=== PATIENT | female | born 1965 | race Caucasian/White ===

== ENCOUNTER 2017-01-15 19:46 | Inpatient (IN) | payer OTHER ==
[2017-01-15] MEDS ORDERED: DIAZEPAM 5 MG TAB PO PRN (20:13)
[2017-01-15] MEDS ORDERED: HYDROmorphONE/DILAUDID 2 MG TAB PO ONE (21:00)
[2017-01-15] MEDS: SENNOSIDES/DOCUSATE SODIUM TAB PO SCH (21:13)
[2017-01-15] MEDS ORDERED: RIZATRIPTAN BENZOATE 10 MG PO PRN (22:13)
[2017-01-15] MEDS ORDERED: ALPRAZolam 0.5 MG TAB PO PRN (22:13)
[2017-01-15] MEDS ORDERED: traMADol 50 MG TAB PO SCH (22:30)
[2017-01-15] MEDS ORDERED: HYDROmorphONE/DILAUDID 2 MG TAB PO SCH (23:00)
[2017-01-15] MEDS ORDERED: CALCIUM CARBONATE 500 MG CHEWABLE TAB PO PRN (23:00)
[2017-01-15] MEDS: ACETAMINOPHEN 500 MG TAB PO SCH (23:12)
[2017-01-15] MEDS: traMADol 50 MG TAB PO SCH (23:12)
[2017-01-16] MEDS: HYDROmorphONE/DILAUDID 2 MG TAB PO SCH ×6 (01:03→21:07)
[2017-01-16] MEDS: traMADol 50 MG TAB PO SCH ×3 (02:58→11:14)
[2017-01-16] MEDS: ACETAMINOPHEN 500 MG TAB PO SCH ×5 (02:59→20:05)
[2017-01-16] MEDS: SENNOSIDES/DOCUSATE SODIUM TAB PO SCH ×2 (08:33→21:07)
[2017-01-16] MEDS: FLUoxetine 20 MG CAP PO SCH (08:33)
[2017-01-16] MEDS: POLYETHYLENE GLYCOL 3350 17 GM PKT PO SCH (08:33)
[2017-01-16] MEDS: CHOLECALCIFEROL VIT D3 2,000 UNITS TAB/CAP PO SCH (08:34)
[2017-01-16] MEDS: CALCIUM CARB W/VIT D 500 MG TAB PO SCH (08:34)
[2017-01-16] MEDS: CETIRIZINE 10 MG TAB PO SCH (08:34)
[2017-01-16] MEDS: [UNRECOGNIZED DRUG - OTHER] PO SCH (08:37)
[2017-01-16] MEDS ORDERED: Herbals/Supplements -Info Only PO SCH (09:00)
[2017-01-16] MEDS ORDERED: ESTRADIOL PO SCH (09:00)
[2017-01-16] MEDS ORDERED: NORETHINDRONE PO SCH (09:00)
[2017-01-16] MEDS ORDERED: FLUTICASONE NASAL 120 SPRAYS/16 GM MDI EACHNARE SCH (09:00)
[2017-01-16] MEDS ORDERED: NON-FORMULARY NEW DRUG IH SCH (10:00)
[2017-01-16] MEDS: ESTRADIOL PO SCH (11:14)
[2017-01-16] MEDS: BUDESONIDE EACHNARE SCH (11:14)
[2017-01-16] MEDS: NORETHINDRONE PO SCH (11:14)
[2017-01-16] MEDS: CALCIUM CARBONATE 500 MG CHEWABLE TAB PO PRN (11:23)
[2017-01-16] MEDS ORDERED: BISACODYL 10 MG SUPP PR PRN (11:30)
[2017-01-16] MEDS ORDERED: traMADol 50 MG TAB PO PRN (11:42)
--- NOTE | 2017-01-16 12:45 | GHP ---
[f rep st] HISTORY AND PHYSICAL POST ADMISSION PHYSICIAN EVALUATION AND REHABILITATION TREATMENT PLAN DATE OF ADMISSION: 01/15/2017 DATE OF EVALUATION: 01/16/2017 TIME OF EVALUATION: 1030. REFERRING FACILITY: [facility]. IMPAIRMENT GROUP: [id number]. DATE OF ONSET: 01/08/2017. REFERRING PHYSICIAN: Dr. Tran. CONSULTING PHYSICIANS: [facility], Dr. Schroeder, for preoperative cardiovascular evaluation. REHABLITATION DIAGNOSIS: Debility, status post lumbar fusion revision. ETIOLOGIC DIAGNOSIS: Other, nontraumatic spinal cord dysfunction. DATE OF SURGERY: 01/08/2017. HISTORY OF PRESENT ILLNESS: Mrs. Zheng has a history of scoliosis. She had lumbar lumbosacral fusion at age 14 and has had failure of that fusion initially per her report, due to ongoing horseback riding, against medical advice when she was 15. She had a subsequent injury approximately 7 years ago in a water slide with her child, who was 2 years old at that time. She reports that she had a sacral fracture in that injury. She had intermittent acute episodes of weakness in her thighs and she had back pain since then. She postponed revision surgery until her son was old enough to be relatively independent to allow her the time to be able to undergo the surgery and rehabilitation. She went to [facility] to have surgery with Dr. Tran, because he had trained under the surgeon who did her initial surgery. She underwent surgery on 01/08/2017 with a T11-S1 revision and fusion. Her postoperative course was complicated by difficulties with pain control, with constipation likely related to pain control, with hypoxemia which was thought to be due to opiate medications, with postoperative anemia and with abdominal pain across her lower abdomen. Labs and studies during her hospitalization,: I do not have a comprehensive list. On 01/10/2015 her creatinine was normal at 0.5. CBC showed an elevated white blood cell count of 12.5. She had anemia with a hemoglobin of 8.8 and hematocrit of 26.9. Platelet count was normal. On differential she had an elevated neutrophil count at 9.5. PRECAUTIONS: She has orthopedic precautions with no bending, lifting or twisting at the lumbar spine. COMORBIDITIES: She has no active tier 1, tier 2, or tier 3 comorbidities. PAST MEDICAL HISTORY: 1. Scoliosis. 2. Mild chronic asthma. 3. Anxiety. 4. Migraine headaches. 5. Seasonal allergies. 6. Chest pain due to migraine medication. 7. Sacral fracture. PAST SURGICAL HISTORY: She has had a spinal fusion when she was 14. PRE-HOSPITAL MEDICATIONS: 1. Fluoxetine 40 mg p.o. daily. 2. Montelukast 10 mg p.o. at bedtime. 3. Nabumetone 750 mg p.o. at bedtime. 4. Oxycodone/acetaminophen 1 tablet q.4 hours p.r.n. 5. Rizatriptan 10 mg p.o. daily p.r.n. migraines. 6. Alprazolam 0.5 mg p.o. twice daily p.r.n. anxiety. 7. Budesonide nasal spray 1 spray nasally daily. 8. Calcium/vitamin-D 1 tab p.o. daily. 9. Cetirizine 10 mg p.o. daily. 10. Vitamin D3 2000 units p.o. daily. 11. Cyclobenzaprine 10 mg p.o. three times daily. 12. Doxepin 10 mg p.o. at bedtime. ADMISSION MEDICATIONS: 1. Acetaminophen 500 mg p.o. q.4 hours. 2. Alprazolam 0.5 mg daily 12 hours p.r.n. 3. Amabelz hormone replacement, 1 tab p.o. daily. 4. Calcium carbonate with vitamin D 500 mg p.o. daily. 5. Calcium carbonate 500 mg p.o. q.2 hours p.r.n. dyspepsia. 6. Cetirizine 10 mg p.o. daily. 7. Cholecalciferol 2000 units p.o. daily. 8. Diazepam 5 mg p.o. q.8 hours p.r.n. 9. Fluoxetine 40 mg p.o. daily. 10. Hydromorphone 2-6 mg scheduled q.4 hours. 11. Methocarbamol 1000 mg p.o. q.6 hours p.r.n. 12. Montelukast 10 mg p.o. at bedtime. 13. Nabumetone 750 mg p.o. at bedtime. 14. Budesonide nasal spray 1 spray each nares p.o. daily. 15. Rizatriptan 10 mg p.o. daily p.r.n. 16. Senna/docusate 2 tabs p.o. twice daily. 17. Tramadol 50 mg p.o. q.4 hours. 18. Wobenzyme supplement 1 tab p.o. daily. ALLERGIES: There are no known drug allergies. FAMILY HISTORY: Noncontributory. PSYCHOSOCIAL HISTORY: She lives with her 88-year-old father and her 9-year-old son. She works as a social insurance specialist. She is a nonsmoker, she quit many years ago. She uses occasional alcohol and no other substances of abuse. REVIEW OF SYSTEMS: She has had abdominal pain across her lower abdomen which has been worse with attempting to stabilize her core with movement. It is improved this morning but still there. She has constipation, she moved her bowels with a suppository several days ago. She has reduced appetite. She has back pain but she has had adequate control with her current medication regimen overnight. She sleeps well but is awakened every 2 hours for pain medications on her current regimen. She denies fevers or chills, recent weight gain or weight loss, cough, dyspnea, chest pain, palpitations, nausea, vomiting, urinary frequency or dysuria, joint pain or joint swelling, skin rash or skin breakdown. She is in good spirits and otherwise, a 10-point review of systems is negative. PHYSICAL EXAM: VITAL SIGNS: Blood pressure 119/74, heart rate is 78, respiratory rate is 16, oxygen saturation is 93% on room air. Temperature is 36.7 degrees centigrade. Her weight is 65.7 kg for a body mass index of 23.4. GENERAL: This is a well-nourished, well-developed woman lying in bed, awake, cooperative and in no acute distress. HEENT: Extraocular movements are intact. Pupils are equal, round, and reactive to light. Mucous membranes are moist. Dentition is in good condition. There is no oropharyngeal erythema or exudate. There is no posterior oropharyngeal mucus. Airway is open, Mallampati class 1. NECK: Supple. HEART: There is a regular rate and rhythm with no murmurs, rubs, or gallops. LUNGS: Clear to auscultation bilaterally. ABDOMEN: Soft, nontender, mildly distended with normoactive bowel sounds and no hepatosplenomegaly. EXTREMITIES: There is no cyanosis, clubbing, or edema. Radial and dorsalis pedis pulses are 2+ bilaterally. NEUROLOGIC: She is alert and oriented x3. Cranial nerves 2-12 are grossly intact. There is no focal weakness. Sensation is intact to light touch. Deep tendon reflexes are 2 + bilaterally at the biceps, patella and Achilles tendons. She is independent in bed mobility, and is able to arise from seated, independently. She ambulates with a front-wheeled walker with a slow gait, a step-through pattern and narrow base of support. IMPRESSION: Mrs. Marycruz Zheng is a 51-year-old woman with a failed lumbar fusion, who has been living with intermittent pain and disability for many years and finally opted for elective revision of previous T11 to sacrum fusion for history of scoliosis. She has come through surgery well and is ready for inpatient rehabilitation. Hospital course was complicated by pain and constipation, and hypoxemia which has resolved. She is appropriate for inpatient rehabilitation to optimize her level of function with a goal of returning to work and returning to caring for her 9-year-old son and 88-year- old father. To accomplish these goals she needs to achieve a high level of independence. She will have physical and occupational therapy. She will have nursing care regarding fall risk, skin integrity, wound healing, bowel and bladder and medication administration and education. She will need the care of physician to optimize her pain management and her bowel regimen and control comorbid conditions of migraines, asthma and seasonal allergies. Her goal is to return home with her family. For a safe discharge she will need to achieve modified independence with mobility and activities of daily living. She will need to be able to manage her own medications. She will need to have her pain controlled and there will need to be training for her family and friends regarding any need for assistance she might have at home. She will have therapy with physical therapy and occupational therapy for 90 minutes per day for each discipline 5-7 days of the week. Her expected duration of stay is 7-10 days. It is anticipated that upon discharge, she will continue to benefit from home health services including physical therapy and occupational therapy. ASSESSMENT AND PLAN: 1. Debility status post T11 to sacrum fusion revision, on 01/08/2017, with associated debility. Physical therapy and occupational therapy to optimize mobility and activities of daily living. 2. Postsurgical pain. She is on a complicated regimen involving medication with hydromorphone, tramadol and acetaminophen every 2 hours. Will initiate long-acting oxycodone at 20 mg daily and at bedtime to improve her overnight pain control. Unclear of the utility of the tramadol so this will be changed fro scheduled to PRN and the acetaminophen will be changed from every 4 hours to every 8 hours. Medications will be adjusted as needed. She reports that her pain has improved over the last day or 2. 3. Constipation due to opiate medications. Polyethylene glycol has been added. Senna/docusate will be discontinued and senna alone will be continued as the docusate does not add any further benefit. Bisacodyl suppository will be available. She will be monitored regarding bowel status and whether or not her bowel regimen needs to be adjusted. 4. Migraine headaches. Will continue rizatriptan on an as-needed basis. 5. Seasonal allergies. Will continue her budesonide inhaler as well as cetirizine and montelukast. 6. Perimenopausal state. She reports that she is in menopausal transition and is taking hormone replacement therapy. She says that she has had some improvement in her migraines during this process. Will continue the hormone replacement therapy. 7. Anxiety. Will continue fluoxetine as well as the as needed alprazolam. The role of the diazepam is unclear. She took a dose last night. It is hoped that she will become independent of benzodiazepines during her stay. 8. History of a sacral fracture raises questions regarding bone strength. She was on vitamin D replacement prior to her surgery and this will be continued. 9. Prophylaxis. She appears to be ambulating well. If she is able to continue ambulating 150 feet or more 3 times a day there is no need to consider pharmacologic prophylaxis. Her orders from the hospital are for sequential compression devices. These will be continued. 10. Followup. Was discussed with Dr. Tran. [place] can be removed approximately 2 weeks status post surgery, which would be on January 22, and she should follow up with Dr. Tran in approximately 2 weeks, on or about January 29. /[id number]/MODL MTDD
[2017-01-16] MEDS: MONTELUKAST SODIUM 10 MG TAB PO SCH (21:07)
[2017-01-16] MEDS: NABUMETONE 750 MG TAB PO SCH (21:07)
[2017-01-17] MEDS: HYDROmorphONE/DILAUDID 2 MG TAB PO SCH ×6 (00:57→20:57)
[2017-01-17] MEDS: ACETAMINOPHEN 500 MG TAB PO SCH ×3 (04:30→20:57)
--- NOTE | 2017-01-17 08:50 | SOAPPROG ---
SOAP Progress Note Assessment/Plan: Assessment: 1. Debility status post T11 to sacrum fusion revision, on 01/08/2017, with associated debility. Physical therapy and occupational therapy to optimize mobility and activities of daily living. 2. Postsurgical pain. She is on a complicated regimen involving medication with hydromorphone, tramadol and acetaminophen every 2 hours. Will initiate long-acting oxycodone at 20 mg daily and at bedtime to improve her overnight pain control. Unclear of the utility of the tramadol so this will be changed fro scheduled to PRN and the acetaminophen will be changed from every 4 hours to every 8 hours. Medications will be adjusted as needed. She reports that her pain has improved over the last day or 2. 3. Constipation due to opiate medications. Polyethylene glycol has been added. Senna/docusate will be discontinued and senna alone will be continued as the docusate does not add any further benefit. Bisacodyl suppository will be available. She will be monitored regarding bowel status and whether or not her bowel regimen needs to be adjusted. 4. Migraine headaches. Will continue rizatriptan on an as-needed basis. 5. Seasonal allergies. Will continue her budesonide inhaler as well as cetirizine and montelukast. 6. Perimenopausal state. She reports that she is in menopausal transition and is taking hormone replacement therapy. She says that she has had some improvement in her migraines during this process. Will continue the hormone replacement therapy. 7. Anxiety. Will continue fluoxetine as well as the as needed alprazolam. The role of the diazepam is unclear. She took a dose last night. It is hoped that she will become independent of benzodiazepines during her stay. 8. History of a sacral fracture raises questions regarding bone strength. She was on vitamin D replacement prior to her surgery and this will be continued. 9. Prophylaxis. She appears to be ambulating well. If she is able to continue ambulating 150 feet or more 3 times a day there is no need to consider pharmacologic prophylaxis. Her orders from the hospital are for sequential compression devices. These will be continued. 10. Followup. Was discussed with Dr. Tran. [place] can be removed approximately 2 weeks status post surgery, which would be on January 22, and she should follow up with Dr. Tran in approximately 2 weeks, on or about January 29. 01/17/17 08:49 Objective: Vital Signs Temp Pulse Resp BP Pulse Ox 36.8 C 71 16 109/68 93 01/17/17 07:56 01/17/17 07:56 01/17/17 07:56 01/17/17 07:56 01/17/17 07:56 01/16/17 01/17/17 01/18/17 05:59 05:59 05:59 Intake Total 300 1340 Balance 300 1340
--- NOTE | 2017-01-17 08:50 | PDOREHIP ---
Admission [facility] - Admission - 3 Day Assessment Period Admission Date/Day 1: 01/15/17 Day 2: 01/16/17 Day 3: 01/17/17 - Active Diagnoses Comorbidities and Co-existing Conditions at Admission: 38636. None of the Above - Skin Conditions Unhealed Pressure Ulcer (1 or more/Stage 1 or >)-Admission: 0. No
[2017-01-17] MEDS ORDERED: SENNOSIDES 1 TAB PO SCH (09:00)
[2017-01-17] MEDS: NORETHINDRONE PO SCH (09:32)
[2017-01-17] MEDS: ESTRADIOL PO SCH (09:32)
[2017-01-17] MEDS: BUDESONIDE EACHNARE SCH (09:33)
[2017-01-17] MEDS: [UNRECOGNIZED DRUG - OTHER] PO SCH (09:33)
[2017-01-17] MEDS: FLUoxetine 20 MG CAP PO SCH (09:33)
[2017-01-17] MEDS: CALCIUM CARB W/VIT D 500 MG TAB PO SCH (09:33)
[2017-01-17] MEDS: CETIRIZINE 10 MG TAB PO SCH (09:33)
[2017-01-17] MEDS: CHOLECALCIFEROL VIT D3 2,000 UNITS TAB/CAP PO SCH (09:33)
[2017-01-17] MEDS: POLYETHYLENE GLYCOL 3350 17 GM PKT PO SCH (09:41)
--- NOTE | 2017-01-17 10:00 | SOAPPROG ---
SOAP Progress Note Assessment/Plan: Assessment: * Debility status post T11 to sacrum fusion revision, on 01/08/2017, with associated debility. Initial FIM 96. Mobility SBA. I to don or doff back brace; SBA for ADLs. Walked 140'. Continue Physical therapy and occupational therapy to optimize mobility and activities of daily living. * Postsurgical pain. Adequate control with long-acting oxycodone at 20 mg at bedtime to improve her overnight pain control. Continue tramadol PRN; unclear utility along with relatively high dose opiates; has not needed it overnight or this morning 01/17/17. Continue acetaminophen 1000 mg Q 8 hr and hydromorphone 2 - 6 mg Q 4 hr scheduled; always using 6 mg. Continue to monitor and anticipate dose reductions as she healed from surgery over a period of weeks. * Constipation due to opiate medications. Responding to bowel protocol with polyethylene glycol QD and senna 2 tabs BID, with loose stool. Enrrique decrease senna. Bisacodyl suppository is available. C. difficile neg. * Post-surgical anemia. Check CBC and iron panel in AM 01/18/17. May use Floridex iron supplement as non-formulary. * Migraine headaches. Will continue rizatriptan on an as-needed basis. * Seasonal allergies. Will continue her budesonide inhaler as well as cetirizine and montelukast. * Perimenopausal state. She reports that she is in menopausal transition and is taking hormone replacement therapy. She says that she has had some improvement in her migraines during this process. Will continue the hormone replacement therapy. * Anxiety. Will continue fluoxetine as well as the as needed alprazolam. The role of the diazepam is unclear; used once 01/15/17; not using alprazolam. It is hoped that she will become independent of benzodiazepines during her stay. * History of a sacral fracture raises questions regarding bone strength. She was on vitamin D replacement prior to her surgery and this will be continued. * Prophylaxis. She appears to be ambulating well. If she is able to continue ambulating 150 feet or more 3 times a day there is no need to consider pharmacologic prophylaxis. Her orders from the hospital are for sequential compression devices. These will be continued. Attended staffing, 15 min. D/W case mgmt, nursing, PT, OT. Has caterers helper at home to assist with care for 88 yo father' for 9 year old son. Plan for discharge home 01/20/17. Followup was discussed with Dr. Tran. [place] can be removed approximately 2 weeks status post surgery, which would be on January 22, and she should follow up with Dr. Tran in approximately 2 weeks, on or about January 29. 01/17/17 12:46 Subjective: Bowels are moving and she was concerned re C. difficile, as her father who she cares for had C. difficile. Concerned re iron status; was getting iron supplement BID in the hospital but refused it due to change in stool color to black; wants "Floridex" plant-based iron supplement. Pain adequately controlled. Noticed pain when awakened overnight but pain did not interfere with sleep or returning to sleep. Objective: Vital Signs Temp Pulse Resp BP Pulse Ox 36.8 C 71 16 109/68 93 01/17/17 07:56 01/17/17 07:56 01/17/17 07:56 01/17/17 07:56 01/17/17 07:56 01/16/17 01/17/17 01/18/17 05:59 05:59 05:59 Intake Total 300 1340 Balance 300 1340 Physical Exam - Physical Exam General Appearance: WD/WN, alert, no apparent distress Respiratory: No respiratory distress, No accessory muscle use Skin: normal color, warm/dry, other (Incicsion with johanna, C/D/I) Neuro/Psych: alert, normal mood/affect, oriented x 3 ICD10 Worksheet Patient Problems: Problems Problem Status Onset S/P lumbar fusion Acute - ICD10 Problem Qualifiers (1) S/P lumbar fusion
[2017-01-17] MEDS: PROBIOTIC PO SCH (17:15)
[2017-01-17] MEDS: [UNRECOGNIZED DRUG - OTHER] PO PRN (17:16)
[2017-01-17] MEDS: SENNOSIDES 1 TAB PO SCH (20:58)
[2017-01-17] MEDS: MONTELUKAST SODIUM 10 MG TAB PO SCH (20:58)
[2017-01-17] MEDS: NABUMETONE 750 MG TAB PO SCH (20:58)
[2017-01-17] MEDS: CALCIUM CARBONATE 500 MG CHEWABLE TAB PO PRN (21:12)
[2017-01-18] MEDS: HYDROmorphONE/DILAUDID 2 MG TAB PO SCH ×6 (00:59→22:16)
[2017-01-18] MEDS: ACETAMINOPHEN 500 MG TAB PO SCH ×3 (05:04→20:01)
[2017-01-18] MEDS: POLYETHYLENE GLYCOL 3350 17 GM PKT PO SCH (09:23)
[2017-01-18] MEDS: CHOLECALCIFEROL VIT D3 2,000 UNITS TAB/CAP PO SCH (09:23)
[2017-01-18] MEDS: CETIRIZINE 10 MG TAB PO SCH (09:23)
[2017-01-18] MEDS: SENNOSIDES 1 TAB PO SCH ×2 (09:23→20:02)
[2017-01-18] MEDS: [UNRECOGNIZED DRUG - OTHER] PO PRN (09:23)
[2017-01-18] MEDS: FLUoxetine 20 MG CAP PO SCH (09:23)
[2017-01-18] MEDS: CALCIUM CARB W/VIT D 500 MG TAB PO SCH (09:23)
[2017-01-18] MEDS: BUDESONIDE EACHNARE SCH (09:24)
[2017-01-18] MEDS: ESTRADIOL PO SCH (09:25)
[2017-01-18] MEDS: NORETHINDRONE PO SCH (09:25)
[2017-01-18] MEDS: IRON SUPPLEMENT PO SCH (09:25)
[2017-01-18] MEDS: PROBIOTIC PO SCH ×3 (09:35→17:19)
[2017-01-18 10:08] LABS: % IMMATURE GRANULYOCYTES 0.8 % (0.0-1.1); ABSOLUTE IMMATURE GRANULOCYTES 0.08 10^3/uL (0.00-0.10); ADD DIFF? NO; ADD MORPH? NO; ADD SCAN? NO; ATYPICAL LYMPHOCYTE FLAG 10 (0-99); FRAGMENT RBC FLAG 0 (0-99); HEMATOCRIT 31.5 % (38.0-47.0); LEFT SHIFT FLG 0 (0-99); LIPEMIA HEMOLYSIS FLAG 80 (0-99); MEAN CELL HEMOGLOBIN 30.7 pg (27.9-34.1); MEAN CELL HEMOGLOBIN CONCENTR. 31.7 g/dL (32.4-36.7); MEAN CELL VOLUME 96.6 fL (81.5-99.8); MEAN PLATELET VOLUME 8.3 fL (8.7-11.7); PLATELET CLUMPS FLAG 0 (0-99); PLATELET COUNT 679 10^3/uL (150-400); RED BLOOD CELL COUNT 3.26 10^6/uL (4.18-5.33); RED CELL DISTRIBUTION WIDTH 13.9 % (11.5-15.2)
[2017-01-18 10:15] LABS: % SATURATION 14 % (20-55); TOTAL IRON BINDING CAPACITY 242 ug/dL (260-490)
--- NOTE | 2017-01-18 11:47 | SOAPPROG ---
SOAP Progress Note Assessment/Plan: Assessment: * Postsurgical pain. Adequate control with long-acting oxycodone at 20 mg at bedtime to improve her overnight pain control. Continue tramadol PRN; unclear utility along with relatively high dose opiates; has not needed it overnight or this morning 01/17/17. Continue acetaminophen 1000 mg Q 8 hr and hydromorphone 2 - 6 mg Q 4 hr scheduled; always using 6 mg. NO CHANGE IN OPIOID INTAKE LAST PM. AGREE WITH ABOVE Continue to monitor and anticipate dose reductions as she healed from surgery over a period of weeks. * Constipation due to opiate medications. Responding to bowel protocol with polyethylene glycol QD and senna 2 tabs BID, with loose stool. Enrrique decrease senna. Bisacodyl suppository is available. C. difficile neg. DIARRHEA THIS AM ?FROM BOWEL PROGRAM. * Post-surgical anemia. Check CBC and iron panel in AM 01/18/17. May use Floridex iron supplement as non-formulary. SERUM FE LEVEL LOW AT 33.3. SHE APPARENTLY WILL USE HER OWN PLANT BASED FE SUPPLEMENT. * Migraine headaches. Will continue rizatriptan on an as-needed basis. * Seasonal allergies. Will continue her budesonide inhaler as well as cetirizine and montelukast. * Perimenopausal state. She reports that she is in menopausal transition and is taking hormone replacement therapy. She says that she has had some improvement in her migraines during this process. Will continue the hormone replacement therapy. * Anxiety. Will continue fluoxetine as well as the as needed alprazolam. The role of the diazepam is unclear; used once 01/15/17; not using alprazolam. It is hoped that she will become independent of benzodiazepines during her stay. * History of a sacral fracture raises questions regarding bone strength. She was on vitamin D replacement prior to her surgery and this will be continued. * Prophylaxis. She appears to be ambulating well. If she is able to continue ambulating 150 feet or more 3 times a day there is no need to consider pharmacologic prophylaxis. Her orders from the hospital are for sequential compression devices. These will be continued. Plan: 01/18/17 11:40 01/18/17 11:43 Subjective: Reports diarrhea this am. Denies abdominal pain. Reports good pain control. Objective: Vital Signs Temp Pulse Resp BP Pulse Ox 36.4 C 93 16 108/68 96 01/17/17 20:00 01/17/17 20:00 01/17/17 20:00 01/17/17 20:00 01/17/17 20:00 Laboratory Results 01/18/17 07:20 01/17/17 01/18/17 01/19/17 05:59 05:59 05:59 Intake Total 1340 1580 472 Balance 1340 1580 472 - Pending Discharge Pending Discharge Within 48 Hours: Yes Pending Discharge Date: 01/20/17 Pending Discharge Time: 11:00 Physical Exam - Physical Exam General Appearance: WD/WN, alert, no apparent distress Respiratory: chest non-tender, lungs clear, normal breath sounds Cardiac/Chest: No edema, No JVD Abdomen: normal bowel sounds, non-tender, soft Back: Other (TLSO IN PLACE AND FITS WELL. NO PARALUMBAR SPASMS) Neuro/Psych: no motor/sensory deficits, normal mood/affect, oriented x 3
[2017-01-18] MEDS: [UNRECOGNIZED DRUG - OTHER] PO SCH (13:47)
[2017-01-18] MEDS: METHOCARBAMOL 500 MG TAB PO PRN ×2 (17:19→23:41)
[2017-01-18] MEDS: MONTELUKAST SODIUM 10 MG TAB PO SCH (20:01)
[2017-01-18] MEDS: NABUMETONE 750 MG TAB PO SCH (22:46)
[2017-01-19] MEDS: HYDROmorphONE/DILAUDID 2 MG TAB PO SCH ×6 (03:02→20:34)
[2017-01-19] MEDS: ACETAMINOPHEN 500 MG TAB PO SCH ×3 (04:36→20:50)
[2017-01-19] MEDS: FLUoxetine 20 MG CAP PO SCH (08:58)
[2017-01-19] MEDS: CHOLECALCIFEROL VIT D3 2,000 UNITS TAB/CAP PO SCH (08:58)
[2017-01-19] MEDS: METHOCARBAMOL 500 MG TAB PO PRN ×2 (08:59→17:26)
[2017-01-19] MEDS: CETIRIZINE 10 MG TAB PO SCH (08:59)
[2017-01-19] MEDS: CALCIUM CARB W/VIT D 500 MG TAB PO SCH (08:59)
[2017-01-19] MEDS: PROBIOTIC PO SCH ×3 (09:01→17:27)
[2017-01-19] MEDS: NORETHINDRONE PO SCH (09:02)
[2017-01-19] MEDS: ESTRADIOL PO SCH (09:02)
[2017-01-19] MEDS: BUDESONIDE EACHNARE SCH (09:04)
[2017-01-19] MEDS: IRON SUPPLEMENT PO SCH (09:04)
[2017-01-19] MEDS: POLYETHYLENE GLYCOL 3350 17 GM PKT PO SCH (09:08)
[2017-01-19] MEDS: SENNOSIDES 1 TAB PO SCH ×2 (09:09→20:35)
[2017-01-19] MEDS: [UNRECOGNIZED DRUG - OTHER] PO SCH (09:10)
--- NOTE | 2017-01-19 10:48 | SOAPPROG ---
SOAP Progress Note Assessment/Plan: Assessment: * Postsurgical pain. Adequate control with long-acting oxycodone at 20 mg at bedtime to improve her overnight pain control. Continue tramadol PRN; unclear utility along with relatively high dose opiates; has not needed it overnight or this morning 01/17/17. Continue acetaminophen 1000 mg Q 8 hr and hydromorphone 2 - 6 mg Q 4 hr scheduled; always using 6 mg. NO CHANGE IN OPIOID INTAKE LAST PM. AGREE WITH ABOVE Continue to monitor and anticipate dose reductions as she healed from surgery over a period of weeks. PATIENT ADVISED TO TAKE ROBAXIN BID AND APPLY ICE 20 MINUTES TO THORACIC AND LUMBAR PARASPINALS TO DECREASE PARASPINAL MUSCLE SPASMS. ALSO ADVISED THAT RELAFEN SHOULD BE D/C'D IT CAN IMPEDE FAIZAN INGROWTH TO THE SPINAL HARDWARE AND PREVENT/DELAY HEALING * Constipation due to opiate medications. Responding to bowel protocol with polyethylene glycol QD and senna 2 tabs BID, with loose stool. Enrrique decrease senna. Bisacodyl suppository is available. C. difficile neg. DIARRHEA THIS AM ?FROM BOWEL PROGRAM. * Post-surgical anemia. Check CBC and iron panel in AM 01/18/17. May use Floridex iron supplement as non-formulary. SERUM FE LEVEL LOW AT 33.3. SHE APPARENTLY WILL USE HER OWN PLANT BASED FE SUPPLEMENT. * Migraine headaches. Will continue rizatriptan on an as-needed basis. * Seasonal allergies. Will continue her budesonide inhaler as well as cetirizine and montelukast. * Perimenopausal state. She reports that she is in menopausal transition and is taking hormone replacement therapy. She says that she has had some improvement in her migraines during this process. Will continue the hormone replacement therapy. * Anxiety. Will continue fluoxetine as well as the as needed alprazolam. The role of the diazepam is unclear; used once 01/15/17; not using alprazolam. It is hoped that she will become independent of benzodiazepines during her stay. * History of a sacral fracture raises questions regarding bone strength. She was on vitamin D replacement prior to her surgery and this will be continued. * Prophylaxis. She appears to be ambulating well. If she is able to continue ambulating 150 feet or more 3 times a day there is no need to consider pharmacologic prophylaxis. Her orders from the hospital are for sequential compression devices. These will be continued. Plan: 01/18/17 11:40 01/18/17 11:43 01/19/17 10:48 Subjective: She has several questions and concerns regarding pain medications. She states she thought the relafen was the muscle relaxant. She reports she has muscle spasms but has not been taking the robaxin. Objective: Vital Signs Temp Pulse Resp BP Pulse Ox 36.9 C 74 15 115/75 94 01/19/17 07:47 01/19/17 07:47 01/19/17 07:47 01/19/17 07:47 01/19/17 07:47 Laboratory Results 01/18/17 07:20 01/18/17 01/19/17 01/20/17 05:59 05:59 05:59 Intake Total 1580 772 Balance 1580 772 Physical Exam - Physical Exam General Appearance: WD/WN, alert, no apparent distress Respiratory: lungs clear, normal breath sounds Cardiac/Chest: No edema, No JVD Abdomen: non-tender, soft (wearing TLSO) Skin: normal color, warm/dry, No cyanosis Extremities: normal range of motion, No pedal edema, No Benji's sign Neuro/Psych: no motor/sensory deficits, normal mood/affect, oriented x 3
[2017-01-19] MEDS: HYDROmorphONE/DILAUDID 4 MG TAB PO SCH ×4 (12:22→20:30)
[2017-01-19] MEDS: MONTELUKAST SODIUM 10 MG TAB PO SCH (20:34)
[2017-01-20] MEDS: HYDROmorphONE/DILAUDID 2 MG TAB PO SCH ×3 (00:57→08:37)
[2017-01-20] MEDS: HYDROmorphONE/DILAUDID 4 MG TAB PO SCH ×2 (01:01→06:10)
[2017-01-20] MEDS: ACETAMINOPHEN 500 MG TAB PO SCH ×2 (04:42→13:03)
[2017-01-20] MEDS: METHOCARBAMOL 500 MG TAB PO PRN (04:46)
[2017-01-20] MEDS: POLYETHYLENE GLYCOL 3350 17 GM PKT PO SCH (08:13)
[2017-01-20] MEDS: FLUoxetine 20 MG CAP PO SCH (08:14)
[2017-01-20] MEDS: CHOLECALCIFEROL VIT D3 2,000 UNITS TAB/CAP PO SCH (08:14)
[2017-01-20] MEDS: SENNOSIDES 1 TAB PO SCH (08:14)
[2017-01-20] MEDS: NORETHINDRONE PO SCH (08:20)
[2017-01-20] MEDS: ESTRADIOL PO SCH (08:20)
[2017-01-20] MEDS: BUDESONIDE EACHNARE SCH (08:22)
[2017-01-20] MEDS: CALCIUM CARB W/VIT D 500 MG TAB PO SCH (08:22)
[2017-01-20] MEDS: CETIRIZINE 10 MG TAB PO SCH (08:22)
[2017-01-20] MEDS: PROBIOTIC PO SCH ×2 (08:23→13:12)
[2017-01-20] MEDS: IRON SUPPLEMENT PO SCH (08:24)
[2017-01-20] MEDS: [UNRECOGNIZED DRUG - OTHER] PO SCH (08:27)
[2017-01-20 08:31] VITALS: BP 118/74; PULSE 72; RESP 14; TEMP 98.4; O2SAT 97
[2017-01-20] MEDS ORDERED: HYDROmorphONE/DILAUDID 4 MG TAB PO SCH ×2 (09:30→13:00)
--- NOTE | 2017-01-20 17:04 | PDOREHIP ---
Admission [facility] - Admission - 3 Day Assessment Period Admission Date/Day 1: 01/15/17 Day 2: 01/16/17 Day 3: 01/17/17 Discharge [facility] - Discharge - 3 Day Assessment Period 2 Days Prior to Anticipated Discharge Date: 01/18/17 1 Day Prior to Anticipated Discharge Date: 01/19/17 Anticipated Discharge Date: 01/20/17 - Discharge Skin Conditions Unhealed Pressure Ulcer (1 or more/Stage 1 or >)-Discharge: 0. No
--- NOTE | 2017-01-21 05:34 | GDS ---
[f rep st] DISCHARGE SUMMARY ADMITTING DIAGNOSIS: Debility, status post revision of T11-S1 spinal fusion. DISCHARGE DIAGNOSIS: Debility, status post revision of T11-S1 spinal fusion. OTHER DISCHARGE DIAGNOSES: 1. Pain control. 2. Constipation. 3. Postsurgical anemia. CONSULTATIONS: There were none. PROCEDURES: There were none. COMPLICATIONS: There were none. HISTORY AND HOSPITAL COURSE: The patient was admitted from [facility], where she had revision of a T11 through sacral spinal fusion done by Dr. Tran. She chose to go to [facility] because Dr. Tran had trained under the surgeon who did her initial spinal fusion at age 14. This was for a history of scoliosis. She had 2 different incidences, one during her teen years and the other several years prior to her surgery, which she thought had affected the integrity of the previous spinal fusion, and eventually she decided on elective surgery. Her postoperative course was complicated by difficulties with pain control, constipation due to opiates, hypoxemia possibly due to respiratory depression from opiates, postoperative anemia, and abdominal pain. She progressed in rehabilitation. Her initial functional independence measure or score was 96 on 01/17/2017. This was consistent with a high level of assisted living facility level of function. She required standby assistance for mobility. She was independent with donning or doffing her back brace. She required standby assist for ADLs, and was able to walk 140 feet. Regarding pain control, long-acting oxycodone was began, 20 mg at bedtime which improved her overnight pain control. She had previously been on a regimen of hydromorphone 4 mg q.4 hours alternating with tramadol q.4 hours. The tramadol was changed to as needed, and she had adequate pain control. Additionally, there was acetaminophen 1000 mg q.8 hours scheduled. She had constipation which responded to bowel protocol with polyethylene glycol daily and 2 tablets of senna daily. She had some loose stools. As she reported she had been taking care of her elderly father, who had Clostridium difficile diarrhea, stool was tested for Clostridium difficile and was negative. Her senna dose was decreased. Regarding her anemia, she had a followup test of her CBC, which showed improving anemia. Her hemoglobin was 10 and her hematocrit was 31.5 on 2016. She was slightly iron-deficient, with a total iron level of 33 and an iron saturation of 14%. On the day of discharge, she was continuing to have difficulty with pain control during the day, using hydromorphone 6 mg every 4 hours, and requested a prescription for the oxycodone continuous-release to be given in the morning as well as the evening. This was prescribed to her on the day of discharge. PHYSICAL EXAM: VITAL SIGNS: On the day of discharge, blood pressure is 118/74 , heart rate of 72 respiratory rate is 14, oxygen saturation is 97% on room air , temperature is 36.9 degrees centigrade. Her weight is 65.7 kg for a body mass index of 23.4. GENERAL: A well-nourished, well-developed woman, lying on bed, cooperative, and in no acute distress. HEART: Regular rate and rhythm with no murmurs, rubs, or gallops. LUNGS: Clear to auscultation bilaterally. ABDOMEN: Soft, nontender, nondistended, with normoactive bowel sounds. EXTREMITIES: There is no cyanosis, clubbing, or edema. CONDITION UPON DISCHARGE: Good. ACTIVITY: Ad lizett. She is using a front-wheeled walker for ambulation. She is not to be driving until she is using considerably fewer opiate medications and is cleared for driving by her spine surgeon. DIET: Regular. DATE OF NEXT APPOINTMENT: She has followup with surgeon, Dr. Tran on 2016. She will see her primary care doctor, Jackie Luis, in approximately 10 days, and air traffic control supervisor, Dr. Donnie Gallardo, in approximately 10 days. MEDICATIONS AT DISCHARGE: 1. Wobenzyme enzyme supplement 1 p.o. daily. 2. Cholecalciferol 2000 units p.o. daily. 3. Cetirizine 10 mg p.o. daily. 4. Calcium/vitamin C 600/200 units 1 p.o. daily. 5. Budesonide nasal spray 1 spray each naris daily. 6. Tramadol 50 mg p.o. q.4 hours p.r.n. 7. Oxycodone continuous-release 20 mg p.o. twice daily. 8. Senna 1 tablet p.o. twice daily. 9. Rizatriptan 10 mg p.o. p.r.n. migraine headache. 10. Polyethylene glycol 17 g p.o. daily. 11. Nabumetone 750 mg p.o. at bedtime. 12. Montelukast 10 mg p.o. at bedtime. 13. Methocarbamol 1000 mg q.6 hours p.r.n. 14. Hydromorphone 2-6 mg p.o. q.4 hours. 15. Fluoxetine 40 mg p.o. daily. 16. Calcium carbonate 500 mg p.o. q.2 hours p.r.n. 17. Amabelz hormone replacement 1 p.o. daily. 18. Acetaminophen 1000 mg q.8 hours. 19. Alprazolam 0.5 mg q.12 hours p.r.n. ISSUES TO BE ADDRESSED AT FOLLOWUP: 1. Functional status and pain control. These can be addressed on followup with her surgeon as well as her primary care physician. In addition, she will continue to receive occupational therapy and physical therapy in the home. 2. Constipation. She should continue the bowel program, which she has been using as long as she is continuing to take opiates. 3. Postsurgical anemia with iron deficiency. She was using Floradix vegetarian iron supplement as a non-formulary medication, and this can be continued. Copy requested to: Dr. Mcge[facility] /[id number]/MODL MTDD
== END 2017-01-20 14:19 | disposition home or self-care (01) | DRG 950 ==
LOC: BREH 19:46
PROVIDERS: ADMIT Internal Medicine; ATTEND Internal Medicine
PROC: F0636ZZ Communicative/Cognitive Integration Skills Treatment of Neurological System - Whole Body (ICD-10-PCS; principal; 2017-01-15)
PROC: F07M3ZZ Motor Function Treatment of Musculoskeletal System - Whole Body (ICD-10-PCS; principal; 2017-01-15)
DX: Z48.811 Encounter for surgical aftercare following surgery on the nervous system (principal); M96.1 Postlaminectomy syndrome, not elsewhere classified; G89.18 Other acute postprocedural pain; T40.605A Adverse effect of unspecified narcotics, initial encounter; K59.03 Drug induced constipation; G43.909 Migraine, unspecified, not intractable, without status migrainosus; F41.9 Anxiety disorder, unspecified; D50.0 Iron deficiency anemia secondary to blood loss (chronic); J30.2 Other seasonal allergic rhinitis
CPT/HCPCS: 97110-GP; 97116-GP; 97162-GP; 97165-GO; 97530-GO; 97530-GP; 97535-GO

== ENCOUNTER → 2017-03-27 | Outpatient (CLI) | payer OTHER | LOC: FIMAGING 13:07 | DX: M96.0 Pseudarthrosis after fusion or arthrodesis (principal); M51.26 Other intervertebral disc displacement, lumbar region; M47.894 Other spondylosis, thoracic region; Z98.1 Arthrodesis status ==

== ENCOUNTER → 2017-08-06 | Outpatient (CLI) | payer OTHER | LOC: FIMAGING 12:18 | PROVIDERS: ATTEND Internal Medicine | DX: Z12.31 Encounter for screening mammogram for malignant neoplasm of breast (principal) | CPT/HCPCS: G0202 ==

== ENCOUNTER → 2017-09-18 | Outpatient (CLI) | payer OTHER | LOC: FIMAGING 10:15 | PROVIDERS: ATTEND Internal Medicine | DX: R91.1 Solitary pulmonary nodule (principal) ==

== ENCOUNTER 2018-07-13 10:13 | Emergency (ER) | payer OTHER ==
[2018-07-13 10:59] LABS: PLATELET COUNT 381 10^3/uL (150-400)
--- NOTE | 2018-07-13 10:59 | EDPHY ---
H & P Stated Complaint: c/o pain starting in bilat shoulders then rad to chest gen, elevated bp Time Seen by Provider: 07/13/18 10:34 HPI/ROS: Chief Complaint: Chest pain HPI: 52-year-old woman developed substernal chest pain radiating to her bilateral neck this morning at 7:45 a.m.. Patient states she has a history migraines woke up with a migraine headache this morning. At 7:00 a.m. She took a Maxalt. She has taken this medication before without any difficulties. Pain lasted for about an hour and half. It is now resolved. Denies any leg pain or swelling. No recent travel. No fevers or chills. No family history of coronary artery disease. She does not smoke. She is not on estrogen replacement. She did have a similar episode about 15 years ago when she took Relpax. ROS: 10 systems were reviewed and were negative except those elements noted in the HPI. PMH: Migraine headache, spinal fusion, depression Medications: Prozac, Maxalt, Flexeril, Robaxin, Percocet Social History: No smoking, rare alcohol, no recreational drug use Family History: No family history of coronary artery disease Physical Exam: Gen: Awake, Alert, No Distress HEENT: Nose: no rhinorrhea Eyes: PERRLA, EOMI Mouth: Moist mucosa Neck: Supple, no JVD Chest: nontender, lungs clear to auscultation Heart: S1, S2 normal, no murmur Abd: Soft, non-tender, no guarding Back: no CVA tenderness, no midline tenderness Ext: no edema, non-tender Skin: no rash Neuro: CN II-XII intact, Sensation grossly intact, Strength 5/5 in bilateral upper and lower extremities - Medical/Surgical History Hx Asthma: No Hx Chronic Respiratory Disease: No Hx Diabetes: No Hx Cardiac Disease: No Hx Renal Disease: No Hx Cirrhosis: No Hx Alcoholism: No Hx HIV/AIDS: No Hx Splenectomy or Spleen Trauma: No Other PMH: fusion t12-s1, orif L ankle, breast augmentation, rhinoplasty, migraines, anxiety - Social History Smoking Status: Former smoker Constitutional: Initial Vital Signs Temperature (C) 37.1 C 07/13/18 10:19 Heart Rate 83 07/13/18 10:19 Respiratory Rate 16 07/13/18 10:19 Blood Pressure 158/94 H 07/13/18 10:19 O2 Sat (%) 98 07/13/18 10:19 O2 Delivery Mode Room Air Allergies/Adverse Reactions: cat dander Allergy (Verified 07/13/18 10:25) Home Medications: Medication Instructions Recorded Budesonide [Rhinocort Aqua] 1 sprays EACHNARE DAILY 01/15/17 Calcium Carbonate/Vitamin D3 1 each PO DAILY 01/15/17 [CALCIUM 600 + VIT D TABLET] Cetirizine [ZyrTEC 10 mg (*)] 10 mg PO DAILY 01/15/17 Cholecalciferol Vit D3 [Vitamin D3 2,000 units PO DAILY 01/15/17 2000 units tab (OTC)] Wobenzym 1 tab PO DAILY 01/15/17 ALPRAZolam [Alprazolam] 0.5 mg PO Q12H PRN #15 tablet 01/17/17 Acetaminophen [Tylenol ES 500 mg 1,000 mg PO Q8H #0 tab 01/17/17 (*)] Amabelz 1 mg-0.5 mg Tablet 1 tab PO DAILY #30 01/17/17 Calcium Carbonate [Tums 500MG (*)] 500 mg PO Q2 PRN #0 tab.chew 01/17/17 Diazepam [Valium 5 MG (*)] 5 mg PO Q8 PRN #10 tab 01/17/17 Fluoxetine HCl [Prozac 40 mg] 40 mg PO DAILY #30 capsule 01/17/17 HYDROmorphone HCL [Dilaudid 2 mg 2 - 6 mg PO Q4H #120 tab 01/17/17 (*)] Methocarbamol [Robaxin 500 mg (*)] 1,000 mg PO Q6H PRN #15 tab 01/17/17 Montelukast Sodium [Singulair 10 10 mg PO HS #30 tab 01/17/17 mg (*)] Nabumetone [RELAFEN 750MG (*)] 750 mg PO HS #30 tab 01/17/17 Polyethylene Glycol 3350 [Miralax 17 gm PO DAILY@0800 #0 pkt 01/17/17 17 gm (*)] Rizatriptan Benzoate [Maxalt 10mg] 10 mg PO ONETIMEPRN PRN #30 tab 01/17/17 Sennosides [Senokot] 1 tab PO BID #0 tab 01/17/17 oxyCODONE CR [Oxycontin] 20 mg PO HS #15 tab 01/17/17 traMADol HCL [Ultram] 50 mg PO Q4H #30 tablet 01/17/17 oxyCODONE CR [Oxycontin] 20 mg PO DAILY #15 tab 01/20/17 Medical Decision Making - Diagnostics EKG Interpretation: ECG time 10:34 a.m., sinus rhythm with a rate of 70, normal axis, normal intervals, no acute ST or T-wave changes. Impression: Normal ECG. Imaging Results: Imaging Impressions Chest X-Ray 07/13/18 10:48 Impression: 1. No acute findings in the chest. 2. Tiny pulmonary nodules seen on CT are not appreciable on plain film. Follow- up is recommended as previously described (consider CT in September 2018 if the patient is high-risk). ED Course/Re-evaluation: 52-year-old woman with severe central chest pain after taking Maxalt. Concerning for possibility of coronary vasospasm. She is pain-free now. She has a perc score of 1 based on her age. ECG shows no acute ischemia. Will send troponin, D-dimer, reassess. Repeat troponin is normal. Patient remains pain-free. Think her symptoms are secondary to probably some vasospasm from her Maxalt. She has been counseled to discontinue this medication toe she follows up with her doctor. Given that she had chest pain associated with this I do think she needs to have an outpatient stress test. No evidence of acute MA at this time. We have discussed the risks involved and she is agree with plan for discharge. I have ordered an outpatient stress test consultation. I have also refer her to Neurology for migraine management. - Data Points Laboratory Results: Laboratory Results 07/13/18 10:50 07/13/18 10:50 07/13/18 07/13/18 07/13/18 12:55 10:50 10:50 WBC RBC Hgb Hct MCV MCH MCHC RDW Plt Count MPV Neut % (Auto) Lymph % (Auto) [place] % (Auto) Eos % (Auto) Baso % (Auto) Nucleat RBC Rel Count Absolute Neuts (auto) Absolute Lymphs (auto) Absolute Monos (auto) Absolute Eos (auto) Absolute Basos (auto) Absolute Nucleated RBC Immature Gran % Immature Gran # D-Dimer 0.31 ug/mLFEU ug/mLFEU (0.00-0.50) Sodium Potassium Chloride Carbon Dioxide Anion Gap BUN Creatinine Estimated GFR Glucose Calcium POC Troponin I 0.01 ng/mL ng/mL 0.02 ng/mL ng/mL (0.00-0.08) (0.00-0.08) 07/13/18 07/13/18 10:50 10:50 WBC 8.68 10^3/uL 10^3/uL (3.80-9.50) RBC 4.85 10^6/uL 10^6/uL (4.18-5.33) Hgb 14.8 g/dL g/dL (12.6-16.3) Hct 43.8 % % (38.0-47.0) MCV 90.3 fL fL (81.5-99.8) MCH 30.5 pg pg (27.9-34.1) MCHC 33.8 g/dL g/dL (32.4-36.7) RDW 12.9 % % (11.5-15.2) Plt Count 381 10^3/uL 10^3/uL (150-400) MPV 8.3 fL L fL (8.7-11.7) Neut % (Auto) 60.4 % % (39.3-74.2) Lymph % (Auto) 30.6 % % (15.0-45.0) [place] % (Auto) 6.5 % % (4.5-13.0) Eos % (Auto) 1.6 % % (0.6-7.6) Baso % (Auto) 0.6 % % (0.3-1.7) Nucleat RBC Rel Count 0.0 % % (0.0-0.2) Absolute Neuts (auto) 5.24 10^3/uL 10^3/uL (1.70-6.50) Absolute Lymphs (auto) 2.66 10^3/uL 10^3/uL (1.00-3.00) Absolute Monos (auto) 0.56 10^3/uL 10^3/uL (0.30-0.80) Absolute Eos (auto) 0.14 10^3/uL 10^3/uL (0.03-0.40) Absolute Basos (auto) 0.05 10^3/uL 10^3/uL (0.02-0.10) Absolute Nucleated RBC 0.00 10^3/uL 10^3/uL (0-0.01) Immature Gran % 0.3 % % (0.0-1.1) Immature Gran # 0.03 10^3/uL 10^3/uL (0.00-0.10) D-Dimer Sodium 138 mEq/L mEq/L (135-145) Potassium 4.6 mEq/L mEq/L (3.3-5.0) Chloride 104 mEq/L mEq/L (97-110) Carbon Dioxide 26 mEq/l mEq/l (22-31) Anion Gap 8 mEq/L mEq/L (8-16) BUN 16 mg/dL mg/dL (7-23) Creatinine 0.7 mg/dL mg/dL (0.6-1.0) Estimated GFR > 60 Glucose 85 mg/dL mg/dL (70-100) Calcium 10.1 mg/dL mg/dL (8.5-10.4) POC Troponin I Medications Given: Discontinued Medications Aspirin (Aspirin) 162 mg PO EDNOW ONE Stop: 07/13/18 11:18 Last Admin: 07/13/18 11:17 Dose: 162 mg Point of Care Test Results: Chemistry 07/13/18 07/13/18 12:55 10:50 POC Troponin I 0.01 ng/mL ng/mL 0.02 ng/mL ng/mL (0.00-0.08) (0.00-0.08) Departure - Departure Disposition: Home, Routine, Self-Care Clinical Impression: Chest pain Condition: Good Instructions: Chest Pain (ED) Additional Instructions: Follow up with Cardiology for an outpatient stress test. Follow up with Neurology for further management of her migraine headaches. Return to the emergency department for chest pain, shortness of breath, lightheadedness, fainting, or any other concerns. Referrals: Jackie Luis MD [Primary Care Provider] - As per Instructions Neftali Choudhary DO [Medical Doctor] - As per Instructions Danny Guadalupe MD [Medical Doctor] - As per Instructions
[2018-07-13] MEDS ORDERED: ASPIRIN 325 MG TAB PO ONE (11:01)
[2018-07-13] MEDS ORDERED: ASPIRIN 81 MG CHEWABLE TAB ONE (11:14)
[2018-07-13] MEDS ORDERED: ASPIRIN 81 MG CHEWABLE TAB PO ONE (11:17)
--- NOTE | 2018-07-13 13:51 | CPEKG ---
Test Reason : OPEN Blood Pressure : / mmHG Vent. Rate : 070 BPM Atrial Rate : 070 BPM P-R Int : 151 ms QRS Dur : 089 ms QT Int : 416 ms P-R-T Axes : -04 063 016 degrees QTc Int : 449 ms Sinus rhythm Probable left atrial enlargement Low voltage, precordial leads Confirmed by Stevie Acharya ([id number]) on 07/13/2018 1:50:58 PM Referred By: Confirmed By:Stevie Acharya
[2018-07-13 13:55] VITALS: BP 112/93
== END 2018-07-13 13:55 | disposition home or self-care (01) ==
DX: R07.9 Chest pain, unspecified (principal); G43.909 Migraine, unspecified, not intractable, without status migrainosus; Z98.1 Arthrodesis status
CPT/HCPCS: 84484-PO

== ENCOUNTER → 2018-08-19 | Outpatient (CLI) | payer OTHER ==
[~2018-08-19] MED LIST: IOPAMIDOL (ISOVUE 370) 100 ML BTL IV ONE
== END ==
LOC: FIMAGING 16:08
PROVIDERS: ATTEND Internal Medicine Cardiovascular Disease
DX: I11.9 Hypertensive heart disease without heart failure (principal); I43 Cardiomyopathy in diseases classified elsewhere; R07.9 Chest pain, unspecified; I77.89 Other specified disorders of arteries and arterioles; R91.1 Solitary pulmonary nodule
CPT/HCPCS: Q9967

== ENCOUNTER → 2018-09-09 | Outpatient (CLI) | payer OTHER | LOC: FIMAGING 10:43 | PROVIDERS: ATTEND Internal Medicine | DX: Z12.31 Encounter for screening mammogram for malignant neoplasm of breast (principal); Z80.3 Family history of malignant neoplasm of breast ==